=== PATIENT | female | born 1950 | race Caucasian/White ===

== ENCOUNTER 2017-07-24 12:41 | Emergency (ER) | payer MEDICARE, OTHER ==
[~2017-07-24] VITALS: Ht 177.8 cm; Wt 90.9 kg
[2017-07-24 14:55] VITALS: BP 147/65
== END 2017-07-24 14:58 | disposition home or self-care (01) ==
LOC: ER 12:42
DX: I10 Essential (primary) hypertension (principal); E11.9 Type 2 diabetes mellitus without complications; Z88.2 Allergy status to sulfonamides; Z88.1 Allergy status to other antibiotic agents
CPT/HCPCS: 93005; 99283

== ENCOUNTER 2021-05-09 06:07 | Day surgery (SDC) | payer MEDICARE ==
[2021-05-08 13:06] LABS: BASOPHILS # (AUTO) 0.1 X10'3 (0-0.2); BASOPHILS % (AUTO) 0.8 % (0-1); EOSINOPHILS # (AUTO) 0.3 X10'3 (0-0.9); EOSINOPHILS % (AUTO) 4.1 % (0-6); HEMATOCRIT 37.9 % (35.0-45.0); HEMOGLOBIN 13.1 g/dl (12.0-16.0); LYMPHOCYTES % (AUTO) 31.8 % (21-51); MEAN CORPUSCULAR HEMOGLOBIN 29.1 PG (27.0-31.0); MEAN CORPUSCULAR HGB CONC 34.5 g/dL (33.0-36.5); MEAN CORPUSCULAR VOLUME 84.2 FL (78-98); MEAN PLATELET VOLUME 8.6 FL (7.4-10.4); MONOCYTES # (AUTO) 0.4 X10'3 (0-0.9); MONOCYTES % (AUTO) 5.7 % (2-12); NEUTROPHILS # (AUTO) 3.6 X10'3 (1.8-7.7); NEUTROPHILS % (AUTO) 57.6 % (42-75); PLATELET COUNT 216 X10'3 (140-440); RED CELL DISTRIBUTION WIDTH 13.9 % (11.5-14.5); WHITE BLOOD COUNT 6.2 X10'3 (4.5-11.0)
[2021-05-08 13:12] LABS: ALBUMIN 3.9 G/DL (3.4-5.0); ANION GAP 10 (8-16); BLOOD UREA NITROGEN 11 MG/DL (7-18); BUN/CREATININE RATIO 10.6 (6.6-38.0); CALCIUM 8.9 MG/DL (8.5-10.1); CHLORIDE 103 MMOL/L (99-107); CREATININE 1.04 MG/DL (0.40-0.90); GLUCOSE 194 MG/DL (70-104); POTASSIUM 3.4 MMOL/L (3.5-5.1); SODIUM 141 MMOL/L (135-145); TOTAL CARBON DIOXIDE 28.4 MMOL/L (24-32); eGFR 53 ML/MIN
[2021-05-08 13:14] LABS: PARTIAL THROMBOPLASTIN TIME 26 SECONDS (22-32)
[~2021-05-09] VITALS: Ht 182.9 cm; Wt 102.5 kg
[2021-05-09] VITALS (11 sets, daily range): BP systolic 123–169; BP diastolic 63–90
[2021-05-09] MEDS ORDERED: ceFAZolin 2gm in dextrose, iso 50 ML IV ONE (06:25)
[2021-05-09] MEDS ORDERED: METF-900 PO (06:35)
[2021-05-09] MEDS ORDERED: AMLO10TA13 PO (06:35)
[2021-05-09] MEDS ORDERED: VALS1TAB76 PO (06:35)
[2021-05-09] MEDS ORDERED: ATOR20TA66 PO (06:35)
[2021-05-09] MEDS ORDERED: METO-395 PO (06:41)
[2021-05-09] MEDS ORDERED: GABA300C PO (06:41)
[2021-05-09] MEDS ORDERED: GLIM2TAB6 PO (06:41)
[2021-05-09] MEDS ORDERED: OMEP20TA23 PO (06:47)
[2021-05-09] MEDS ORDERED: ZINC30CA PO (06:47)
[2021-05-09] MEDS ORDERED: ASCO-139 PO (06:47)
[2021-05-09] MEDS ORDERED: VITAMIN B12 PO (06:47)
[2021-05-09] MEDS ORDERED: MAGN400C PO (06:47)
[2021-05-09] MEDS ORDERED: ATOR20TA PO (06:47)
[2021-05-09] MEDS ORDERED: SITA100T15 PO (06:47)
[2021-05-09] MEDS ORDERED: FERR325T29 (06:48)
[2021-05-09] MEDS ORDERED: ceFAZolin 1000mg inj ONE (07:37)
[2021-05-09] MEDS ORDERED: midazolam 1 mg/ML 2ml injection ONE ×2 (07:37→08:33)
[2021-05-09] MEDS ORDERED: fentaNYL/PF 50MCG/1 ML 2ML syringe ONE (07:37)
[2021-05-09] MEDS ORDERED: LIDOcaine 1% w/EPI 1:100,000 30ml vial (MDV) ONE (07:45)
[2021-05-09] MEDS ORDERED: FLU VACC QS2021-22(6MOS UP)/PF 60 MCG/0.5 ML SYRINGE IM ONE (08:00)
[2021-05-09] MEDS ORDERED: HYDROcodone/acetaminophen 5mg/325mg tablet PO PRN (10:30)
[2021-05-09] MEDS ORDERED: HYDROcodone/acetaminophen 10/325mg tab PO PRN (10:30)
[2021-05-09] MEDS ORDERED: normal saline 1000ml 1,000 ML IV SCH (10:30)
[2021-05-09] MEDS ORDERED: vancomycin/NS 1 GM ADD-VANTAGE 250 ML IV ONE (11:00)
== END 2021-05-09 15:00 | disposition home or self-care (01) ==
LOC: SSTAY O 06:07
PROVIDERS: ATTEND Internal Medicine Cardiovascular Disease
DX: I49.5 Sick sinus syndrome (principal); I10 Essential (primary) hypertension; E11.9 Type 2 diabetes mellitus without complications; F41.9 Anxiety disorder, unspecified; G47.00 Insomnia, unspecified; E66.3 Overweight; Z68.31 Body mass index [BMI] 31.0-31.9, adult; K21.9 Gastro-esophageal reflux disease without esophagitis; M10.9 Gout, unspecified; E78.49 Other hyperlipidemia; G47.33 Obstructive sleep apnea (adult) (pediatric); Z79.84 Long term (current) use of oral hypoglycemic drugs; Z90.710 Acquired absence of both cervix and uterus; Z98.1 Arthrodesis status; Z98.890 Other specified postprocedural states; Z87.891 Personal history of nicotine dependence; Z88.8 Allergy status to other drugs, medicaments and biological substances; Z79.899 Other long term (current) drug therapy; Z79.01 Long term (current) use of anticoagulants
CPT/HCPCS: 33208; 36415; 71046; 80048; 82948; 85025; 85610; 85730; 93005; 99152; 99153; C1785; C1894; C1898; J0690; J2250; J3010; J3370; J7030; A4565; A4620; A6258; A6449